=== PATIENT | female | born 1980 | race Caucasian/White ===

== ENCOUNTER → 2017-10-21 15:31 | Outpatient (CLI) | payer OTHER ==
[~2017-10-21 15:31] MED LIST: COREG CR10 MG; FLONASE16 GM NASAL; FLONASE16 GM NS; GILTUSS TR TAB1 EACH PO; HYZAAR 100/25 T1 TAB PO; ZITHROMAX TRI-500 MG PO; ZYRTEC10 MG PO
== END | disposition home or self-care (01) ==
LOC: PPHC 15:31
DX: E03.8 Other specified hypothyroidism (principal)

== ENCOUNTER 2017-10-24 07:31 | Outpatient (CLI) | payer OTHER | END 2017-10-24 07:35 | disposition home or self-care (01) | LOC: LAB 07:31 | DX: E03.8 Other specified hypothyroidism (principal) ==

== ENCOUNTER → 2017-10-24 08:42 | Outpatient (CLI) | payer OTHER ==
[~2017-10-24] VITALS: Ht 152.4 cm; Wt 99.8 kg
== END | disposition home or self-care (01) ==
LOC: PPHC 08:42
DX: H53.8 Other visual disturbances (principal); R51 Headache

== ENCOUNTER 2017-10-24 11:01 | Outpatient (CLI) | payer OTHER | END 2017-10-24 11:02 | disposition home or self-care (01) | LOC: LAB 11:01 | DX: R51 Headache (principal); M53.80 Other specified dorsopathies, site unspecified ==

== ENCOUNTER 2017-10-30 07:20 | Outpatient (CLI) | payer OTHER | END 2017-10-30 14:38 | disposition home or self-care (01) | LOC: SONOGRAMA 07:20 | DX: E04.1 Nontoxic single thyroid nodule (principal); E03.9 Hypothyroidism, unspecified ==

== ENCOUNTER → 2017-11-19 | Outpatient (CLI) | payer OTHER ==
[~2017-11-19] VITALS: Ht 152.4 cm; Wt 99.8 kg
== END | disposition home or self-care (01) ==
LOC: PPHC 12:58
DX: Z01.89 Encounter for other specified special examinations (principal); Z76.0 Encounter for issue of repeat prescription

== ENCOUNTER → 2017-12-01 | Outpatient (CLI) | payer OTHER ==
[~2017-12-01] VITALS: Ht 152.4 cm; Wt 99.8 kg
[~2017-12-01] MED LIST changes: +COZAAR50 MG PO
== END | disposition home or self-care (01) ==
LOC: PPHC 14:07
DX: R50.9 Fever, unspecified (principal); R05 Cough

== ENCOUNTER 2018-04-25 07:27 | Outpatient (CLI) | payer OTHER | END 2018-04-25 07:32 | disposition home or self-care (01) | LOC: LAB 07:27 | DX: I10 Essential (primary) hypertension (principal) ==

== ENCOUNTER 2018-10-25 06:26 | Emergency (ER) | payer OTHER ==
[~2018-10-25] VITALS: Ht 162.6 cm; Wt 95.3 kg
== END 2018-10-25 11:45 | disposition home or self-care (01) ==
LOC: ER 06:26
DX: R07.89 Other chest pain (principal)

== ENCOUNTER 2019-02-05 01:03 | Emergency (ER) | payer OTHER ==
[~2019-02-05] VITALS: Ht 170.2 cm; Wt 97.5 kg
== END 2019-02-05 08:38 | disposition home or self-care (01) ==
LOC: ER 01:03 → CPU-OBS 01:05 → ER 08:38
DX: R07.89 Other chest pain (principal)
CPT/HCPCS: G0378; G0379; 93005

== ENCOUNTER 2019-04-28 07:41 | Emergency (ER) | payer OTHER ==
[~2019-04-28] VITALS: Ht 162.6 cm; Wt 99.8 kg
[2019-04-28] MEDS ORDERED: ONDANSETRON ODT4 MG SL (14:28)
[2019-04-28] MEDS ORDERED: PEPCID AC20 MG PO (14:28)
== END 2019-04-28 16:38 | disposition home or self-care (01) ==
LOC: ER 07:41
DX: K29.70 Gastritis, unspecified, without bleeding (principal); R10.11 Right upper quadrant pain

== ENCOUNTER 2019-07-19 09:36 | Emergency (ER) | payer OTHER ==
[~2019-07-19] VITALS: Ht 162.6 cm; Wt 99.8 kg
[~2019-07-19 09:36] MED LIST changes: +ONDANSETRON ODT4 MG SL; +PEPCID AC20 MG PO
== END 2019-07-19 11:51 | disposition home or self-care (01) ==
LOC: ER 09:36
DX: I16.0 Hypertensive urgency (principal); I10 Essential (primary) hypertension

== ENCOUNTER 2019-07-19 13:03 | Outpatient (CLI) | payer OTHER | END 2019-07-19 13:10 | disposition home or self-care (01) | LOC: LAB 13:03 | DX: J11.1 Influenza due to unidentified influenza virus with other respiratory manifestations (principal) ==

== ENCOUNTER → 2019-08-07 07:37 | Outpatient (CLI) | payer OTHER ==
[~2019-08-07 07:37] MED LIST changes: +CANDESARTAN CILE8 MG
== END | disposition home or self-care (01) ==
LOC: LAB 07:37
DX: E78.49 Other hyperlipidemia (principal); Z00.00 Encounter for general adult medical examination without abnormal findings; E55.9 Vitamin D deficiency, unspecified

== ENCOUNTER → 2019-08-28 | Emergency (ER) | payer OTHER ==
[~2019-08-28] VITALS: Ht 162.6 cm; Wt 99.8 kg
== END | disposition home or self-care (01) ==
LOC: ER 22:53
DX: H10.89 Other conjunctivitis (principal)

== ENCOUNTER 2019-09-07 15:11 | Emergency (ER) | payer OTHER ==
[~2019-09-07] VITALS: Ht 162.6 cm; Wt 104.3 kg
== END 2019-09-07 20:26 | disposition home or self-care (01) ==
LOC: ER 15:11
DX: G44.209 Tension-type headache, unspecified, not intractable (principal); R11.2 Nausea with vomiting, unspecified

== ENCOUNTER 2019-11-08 05:38 | Emergency (ER) | payer OTHER ==
[~2019-11-08] VITALS: Ht 162.6 cm; Wt 104.3 kg
== END 2019-11-08 12:00 | disposition home or self-care (01) ==
LOC: ER 05:38
DX: G43.809 Other migraine, not intractable, without status migrainosus (principal)

== ENCOUNTER 2019-12-21 07:17 | Emergency (ER) | payer OTHER ==
[~2019-12-21] VITALS: Ht 162.6 cm; Wt 99.8 kg
== END 2019-12-21 08:46 | disposition home or self-care (01) ==
LOC: ER 07:17
DX: H10.11 Acute atopic conjunctivitis, right eye (principal)

== ENCOUNTER 2020-01-18 06:22 | Emergency (ER) | payer OTHER ==
[~2020-01-18] VITALS: Ht 162.6 cm; Wt 99.8 kg
== END 2020-01-18 11:58 | disposition home or self-care (01) ==
LOC: ER 06:22
DX: K29.60 Other gastritis without bleeding (principal)

== ENCOUNTER 2020-03-24 22:24 | Emergency (ER) | payer OTHER ==
[~2020-03-24] VITALS: Ht 162.6 cm; Wt 104.3 kg
[2020-03-25] MEDS ORDERED: BUTALB-ACETAMI1 EAC2 PO (04:02)
== END 2020-03-25 06:32 ==
LOC: ER 22:24
DX: G44.209 Tension-type headache, unspecified, not intractable (principal); B34.9 Viral infection, unspecified

== ENCOUNTER 2020-04-19 11:07 | Emergency (ER) | payer OTHER ==
[~2020-04-19] VITALS: Ht 162.6 cm; Wt 104.3 kg
[~2020-04-19 11:07] MED LIST changes: +BUTALB-ACETAMI1 EAC2 PO
== END 2020-04-19 17:13 | disposition home or self-care (01) ==
LOC: ER 11:07
DX: R42 Dizziness and giddiness (principal); R51 Headache

== ENCOUNTER 2020-05-18 09:19 | Outpatient (CLI) | payer OTHER | END 2020-05-18 09:22 | disposition home or self-care (01) | LOC: LAB 09:19 | PROVIDERS: ATTEND General Practice | DX: J11.1 Influenza due to unidentified influenza virus with other respiratory manifestations (principal); R05 Cough; R06.2 Wheezing; R50.9 Fever, unspecified; Z20.828 Contact with and (suspected) exposure to other viral communicable diseases ==

== ENCOUNTER 2020-06-15 22:29 | Emergency (ER) | payer OTHER ==
[~2020-06-15] VITALS: Ht 162.6 cm; Wt 104.3 kg
[2020-06-16] MEDS ORDERED: TAMS0.4C PO (04:28)
[2020-06-16] MEDS ORDERED: CIPRO500 MG PO (04:28)
[2020-06-16] MEDS ORDERED: KETO10TA2 PO (04:28)
== END 2020-06-16 04:58 | disposition home or self-care (01) ==
LOC: ER 22:29
DX: N39.0 Urinary tract infection, site not specified (principal); N20.0 Calculus of kidney; R10.12 Left upper quadrant pain

== ENCOUNTER 2020-06-20 11:44 | Outpatient (CLI) | payer OTHER ==
[~2020-06-20] VITALS: Ht 162.6 cm; Wt 104.3 kg
[~2020-06-20 11:44] MED LIST changes: +CIPRO500 MG PO; +KETO10TA2 PO; +TAMS0.4C PO
== END 2020-06-20 13:00 | disposition home or self-care (01) ==
LOC: OFIC 805 11:44
PROVIDERS: ATTEND Otolaryngology
DX: H90.42 Sensorineural hearing loss, unilateral, left ear, with unrestricted hearing on the contralateral side (principal); H90.71 Mixed conductive and sensorineural hearing loss, unilateral, right ear, with unrestricted hearing on the contralateral side

== ENCOUNTER 2020-08-09 07:07 | Outpatient (CLI) | payer OTHER | END 2020-08-09 07:10 | disposition home or self-care (01) | LOC: LAB 07:07 | PROVIDERS: ATTEND General Practice | DX: E03.8 Other specified hypothyroidism (principal); I10 Essential (primary) hypertension; E78.49 Other hyperlipidemia; E11.9 Type 2 diabetes mellitus without complications; R30.0 Dysuria; D64.89 Other specified anemias; M25.549 Pain in joints of unspecified hand; R50.9 Fever, unspecified ==

== ENCOUNTER 2020-09-14 23:45 | Emergency (ER) | payer OTHER ==
[~2020-09-14] VITALS: Ht 162.6 cm; Wt 102.5 kg
[2020-09-15] MEDS ORDERED: ZOFRAN8 MG PO (05:05)
[2020-09-15] MEDS ORDERED: PEPCID40 MG PO (05:05)
== END 2020-09-15 05:15 | disposition home or self-care (01) ==
LOC: ER 23:45
DX: R42 Dizziness and giddiness (principal); R07.89 Other chest pain; R51.9 Headache, unspecified

== ENCOUNTER 2020-09-26 15:44 | Outpatient (CLI) | payer OTHER ==
[~2020-09-26 15:44] MED LIST changes: +PEPCID40 MG PO; +ZOFRAN8 MG PO
== END 2020-09-26 18:20 | disposition home or self-care (01) ==
LOC: PPH VACUNA 15:44
DX: Z23 Encounter for immunization (principal)

== ENCOUNTER 2020-11-20 09:39 | Emergency (ER) | payer OTHER ==
[~2020-11-20] VITALS: Ht 162.6 cm; Wt 104.3 kg
[2020-11-20] MEDS ORDERED: KETO10TA2 PO (12:00)
== END 2020-11-20 13:02 | disposition home or self-care (01) ==
LOC: ER 09:39
DX: S93.491A Sprain of other ligament of right ankle, initial encounter (principal); X50.0XXA Overexertion from strenuous movement or load, initial encounter; Y93.89 Activity, other specified; Y92.89 Other specified places as the place of occurrence of the external cause; Y99.8 Other external cause status

== ENCOUNTER 2021-04-09 22:03 | Emergency (ER) | payer OTHER ==
[~2021-04-09] VITALS: Ht 162.6 cm; Wt 104.3 kg
== END 2021-04-10 03:31 | disposition home or self-care (01) ==
LOC: ER 22:03
DX: N20.0 Calculus of kidney (principal)

== ENCOUNTER 2021-06-15 04:29 | Emergency (ER) | payer OTHER ==
[~2021-06-15] VITALS: Ht 160 cm; Wt 104.3 kg
[2021-06-15] MEDS ORDERED: AMOX-CLAV 875-1 EACH PO (10:16)
[2021-06-15] MEDS ORDERED: TUSSI PRES-B L480 ML PO (10:16)
[2021-06-15] MEDS ORDERED: CANDESARTAN CILE8 MG PO (10:17)
== END 2021-06-15 10:21 | disposition home or self-care (01) ==
LOC: ER 04:29
DX: R50.9 Fever, unspecified (principal); Z03.818 Encounter for observation for suspected exposure to other biological agents ruled out

== ENCOUNTER → 2021-06-16 | Emergency (ER) | payer OTHER ==
[~2021-06-16] VITALS: Ht 160 cm; Wt 104.3 kg
[~2021-06-16] MED LIST changes: +AMOX-CLAV 875-1 EACH PO; +CANDESARTAN CILE8 MG PO; +TUSSI PRES-B L480 ML PO
== END | disposition home or self-care (01) ==
LOC: ER 08:25
DX: E86.0 Dehydration (principal); H66.91 Otitis media, unspecified, right ear; Z03.818 Encounter for observation for suspected exposure to other biological agents ruled out

== ENCOUNTER 2021-07-10 09:53 | Outpatient (CLI) | payer OTHER | END 2021-07-10 10:53 | disposition home or self-care (01) | LOC: PPH VACUNA 09:53 | PROVIDERS: ATTEND Emergency Medicine Pediatric Emergency Medicine | DX: Z23 Encounter for immunization (principal) ==

== ENCOUNTER 2021-08-14 07:22 | Outpatient (CLI) | payer OTHER | END 2021-08-14 07:32 | disposition home or self-care (01) | LOC: SONOGRAMA 07:22 | PROVIDERS: ATTEND Internal Medicine Cardiovascular Disease | DX: R10.84 Generalized abdominal pain (principal) ==